=== PATIENT | male | born 1950 | race Hispanic/Latino ===

== ENCOUNTER 2017-11-18 20:33 | Emergency (ER) | payer MEDICARE ==
[2017-11-18 20:51] LABS: EOSINOPHILS % (AUTO) 5.9 % (0.0-8.0); LYMPHOCYTES % (AUTO) 28.7 % (21.0-51.0); MEAN CORPUSCULAR HGB CONC 34.8 g/dL (32.0-36.0); MEAN CORPUSCULAR VOLUME 94.9 fL (79-99); MONOCYTES % (AUTO) 8.4 % (3.0-13.0); PLATELET COUNT (AUTO) 177 K/uL (130-400); RED BLOOD CELL COUNT(AUTO) 3.37 MIL/uL (4.50-6.20); RED CELL DISTRIBUTION WIDTH 14.2 % (11.0-15.5); WHITE BLOOD COUNT (AUTO) 6.2 K/uL (4.8-10.8)
[2017-11-18 21:03] LABS: INR 1.07 (0.85-1.15); PARTIAL THROMBOPLASTIN TIME 31.1 SEC (26.3-35.5); PROTHROMBIN TIME 11.2 SEC (9.6-11.6)
[2017-11-18] MEDS ORDERED: TETANUS/DIPHTHERIA TOXOID [ADULT] 0.5 ML VIAL IM ONE (21:06)
[2017-11-18 21:07] LABS: ALBUMIN 3.3 g/dL (3.5-5.0); BILIRUBIN,TOTAL 0.7 mg/dL (0.2-1.0); POTASSIUM 3.3 mmol/L (3.5-5.1); TOTAL PROTEIN, SERUM 7.2 g/dL (6.0-8.3)
[2017-11-18 21:24] LABS: AMPHET/METH SCREEN,URINE NEGATIVE (NEGATIVE); BARBITURATE SCREEN, URINE NEGATIVE (NEGATIVE); BENZODIAZEPINES SCREEN,URINE NEGATIVE (NEGATIVE); CANNABINOID SCREEN,URINE POSITIVE (NEGATIVE); COCAINE SCREEN,URINE NEGATIVE (NEGATIVE); OPIATE SCREEN,URINE NEGATIVE (NEGATIVE); PHENCYCLIDINE SCREEN,URINE NEGATIVE (NEGATIVE)
== END 2017-11-18 23:41 | disposition home or self-care (01) ==
LOC: EDH 20:33
DX: S00.83XA Contusion of other part of head, initial encounter (principal); R55 Syncope and collapse; F19.10 Other psychoactive substance abuse, uncomplicated; Z72.0 Tobacco use; W18.39XA Other fall on same level, initial encounter; Y93.89 Activity, other specified; Y92.89 Other specified places as the place of occurrence of the external cause; Y99.8 Other external cause status
CPT/HCPCS: 36415; 70450; 71045; 72125; 80053; 80305; 84484; 85025; 85610; 85730; 90471; 90714; 93005